=== PATIENT | female | born 1985 | race Caucasian/White ===

== ENCOUNTER 2019-04-16 11:24 | Emergency (ER) | payer BC, SELFPAY ==
[2019-04-16 11:27] VITALS: BP 102/63; PULSE 74; RESP 18; TEMP 36.9; O2SAT 100; BMI 21.4
--- NOTE | 2019-04-16 11:36 | DI.RAD.S_ITS ---
PROCEDURE: XR WRIST LT MIN 3V INDICATIONS: wrist pain s/p fall TECHNIQUE: 4 views of the wrist were acquired. COMPARISON: None. FINDINGS: Bones: There is a comminuted transverse fracture identified involving the distal radial metaphysis that may extend into the distal radial ulnar joint. No dislocation is evident. Dorsal displacement and impaction of the distal fracture fragment is identified. No additional fractures are evident. There is no dislocation. No suspicious osseous lesions are present. Soft tissues: No suspicious soft tissue calcifications. Soft tissue swelling at the fracture site along the dorsal aspect of the wrist is present. No unexpected radiopaque bodies are identified. IMPRESSION: Colles' fracture of the distal radius with mild dorsal impaction. Dictated by: Campos Cortez M.D. on 04/16/2019 at 10:54 Approved by: Campos Cortez M.D. on 04/16/2019 at 10:55
--- NOTE | 2019-04-16 11:44 | ED_ITS ---
HPI - Extremity Injury (Upper) <Anu STEPHANIE SmithP-BC - Last Filed: 04/16/19 15:58> General Chief Complaint: Extremity Injury, Upper Stated Complaint: L wrist injury Time Seen by Provider: 04/16/19 11:26 Source: patient and family Mode of arrival: Ambulatory Limitations: no limitations History of Present Illness HPI narrative: The patient is a 33-year-old female her sister for chief compla int of left wrist injury. She was running atrial raise, tripped and had a FOOSH injury to her left wrist. She denies hitting anything else. She states she landed with her left hand outstretched. She denies any left elbow or shoulder pain. She has taken Motrin for pain this morning. She denies any previous injuries to her left wrist. She states that she is able to move her left wrist. She presents with rings on her left hand which were promptly removed due to swelling. She denies any bleeding, numbness or tingling. She denies any other injury from her fall. She denies hitting her head neck or back pain. Related Data Previous Rx's Medication Instructions Recorded ondansetron 4 mg PO Q6H PRN #20 tab 04/16/19 oxycodone-acetaminophen [Percocet] 1 tab PO Q4-6H PRN #10 tab 04/16/19 Allergies Allergy/AdvReac Type Severity Reaction Status Date / Time No Known Drug Allergies Allergy Verified 04/16/19 11:48 Review of Systems <Anu STEPHANIE SmithP- - Last Filed: 04/16/19 15:58> Review of Systems Narrative: GENERAL: Denies chills, fatigue, malaise, fever, sweats. HEENT: Denies sinus pain, ear pain, sore throat, difficulty swallowing, dizziness. RESPIRATORY: Denies dyspnea, cough, wheezing, hemoptysis, sputum. CARDIOVASCULAR: Denies chest pain, palpitations, orthopnea, edema, GASTROINTESTINAL: Denies nausea, vomiting, abdominal pain, diarrhea, constipatio n, melena. : Denies dysuria, frequency, incontinence, hematuria, urinary retention. MUSCULOSKELETAL: See HPI SKIN: Denies rash, skin lesions, or other NEUROLOGIC: Denies weakness, headache, numbness, change in speech, confusion, seizures, incoordination. PSYCHIATRIC: No concerning psychosocial issues. 12 point review of systems is negative except for those stated above PFSH <KINZA Au - Last Filed: 04/16/19 15:58> Surgical History (Updated 04/16/19 @ 15:57 by KINZA Au) History of mandibular surgery (Acute) Exam <KINZA Au - Last Filed: 04/16/19 15:58> Narrative Exam Narrative: GENERAL: This is a well-nourished, well-developed patient, appears uncomfortable HEAD: Atraumatic. Normocephalic. No temporal or scalp tenderness. EYES: Pupils equal round and reactive. Extraocular motions intact. No scleral icterus. No injection or drainage. ENT: Nose without bleeding, purulent drainage or septal hematoma. Throat without erythema, tonsillar hypertrophy or exudate. Uvula midline. Airway patent. NECK: Trachea midline. No JVD or lymphadenopathy. Supple, nontender, no meningeal signs. CARDIOVASCULAR: Regular rate and rhythm RESPIRATORY: No cough. No increased respiratory effort. No accessory muscle use. No stridor. EXTREMITIES: Pain to palpation left wrist. Positive radial pulse left wrist. Pain with pronation and supination. No pain to palpation of left elbow or shoulder. Patient has sensation left fingers. Capillary refill less than 2 seconds all fingers left hand BACK: Nontender without deformity or crepitance. No flank tenderness. NEURO: AOx3. SKIN: No lacerations or abrasions noted over left forearm or wrist. Initial Vital Signs Initial Vital Signs: Vital Signs Temperature 98.4 F 04/16/19 11:27 Pulse Rate 74 04/16/19 11:27 Respiratory Rate 18 04/16/19 11:27 Blood Pressure 102/63 04/16/19 11:27 Pulse Oximetry 100 04/16/19 11:27 <Marlena Lees MD - Last Filed: 04/16/19 15:58> Initial Vital Signs Initial Vital Signs: Vital Signs Temperature 98.4 F 04/16/19 11:27 Pulse Rate 74 04/16/19 11:27 Respiratory Rate 18 04/16/19 11:27 Blood Pressure 102/63 04/16/19 11:27 Pulse Oximetry 100 04/16/19 11:27 Procedures <KINZA Au - Last Filed: 04/16/19 15:58> Orthopedic Fracture Reduction Fracture #1: Time Out Performed: Yes Side: left Fracture Reduction Location: radius Analgesia: none Technique: direct manipulation and traction/counter-traction Post Reduction X-rays Demonstrate: acceptable reduction Post-reduction neuro exam: intact Post-reduction vascular exam: intact Splint Applied: Yes Patient Tolerated Procedure: Well Additional Comments: Performed with Dr Lees doing direct manipulation of radius while I was applying traction to humerus. Chasity RN assisted with splint application. Patient tolerated procedure well. Orthopedic Splinting/Casting Injury #1: Side: left Upper Extremity Immobilizer: sling/shoulder immobilizer and sugar tong splint Post splinting neuro exam: intact Post splinting vascular exam: intact Placed by: Nursing Course <KINZA Au - Last Filed: 04/16/19 15:58> Orders Ordered: ED Orders 04/16/19 11:36 XR wrist LT min 3V Stat 04/16/19 14:05 XR wrist LT 2V Stat Discontinued Medications Oxycodone/Acetaminophen (Percocet 5/325) 2 tab PO NOW ONE Stop: 04/16/19 12:29 Last Admin: 04/16/19 12:33 Dose: 2 tab Documented by: JEFF Vital Signs Vital signs: Vital Signs - 8 hr 04/16/19 11:27 04/16/19 12:40 04/16/19 13:24 Temperature 98.4 F Pulse Rate 74 64 64 Respiratory Rate 18 16 16 Blood Pressure 102/63 Blood Pressure [Left Arm] 103/70 107/62 Pulse Oximetry 100 100 100 04/16/19 14:15 Temperature Pulse Rate 49 L Respiratory Rate 15 Blood Pressure Blood Pressure [Left Arm] 101/60 Pulse Oximetry 100 <Marlena Lees MD - Last Filed: 04/16/19 15:58> Orders Ordered: ED Orders 04/16/19 11:36 XR wrist LT min 3V Stat 04/16/19 14:05 XR wrist LT 2V Stat Discontinued Medications Oxycodone/Acetaminophen (Percocet 5/325) 2 tab PO NOW ONE Stop: 04/16/19 12:29 Last Admin: 04/16/19 12:33 Dose: 2 tab Documented by: JEFF Vital Signs Vital signs: Vital Signs - 8 hr 04/16/19 11:27 04/16/19 12:40 04/16/19 13:24 Temperature 98.4 F Pulse Rate 74 64 64 Respiratory Rate 18 16 16 Blood Pressure 102/63 Blood Pressure [Left Arm] 103/70 107/62 Pulse Oximetry 100 100 100 04/16/19 14:15 Temperature Pulse Rate 49 L Respiratory Rate 15 Blood Pressure Blood Pressure [Left Arm] 101/60 Pulse Oximetry 100 MDM - Extremity Injury (Upper) <KINZA Au - Last Filed: 04/16/19 15:58> Imaging Data wrist xray : Radiologist's impression: [address] [address] XRay Report Signed Patient: Ava Patricia [facility]#: [id number] : 1985Acct:[id number] Age/Sex: 33 / FDate of Service: 04/16/19 Loc: ED Accession Number: [id number] Procedure: XR wrist LT min 3V Ordering Provider: Anu Smith PROCEDURE: XR WRIST LT MIN 3V INDICATIONS: wrist pain s/p fall TECHNIQUE: 4 views of the wrist were acquired. COMPARISON: None. FINDINGS: Bones: There is a comminuted transverse fracture identified involving the distal radial metaphysis that may extend into the distal radial ulnar joint. No dislocation is evident. Dorsal displacement and impaction of the distal fracture fragment is identified. No additional fractures are evident. There is no dislocation. No suspicious osseous lesions are present. Soft tissues: No suspicious soft tissue calcifications. Soft tissue swelling at the fracture site along the dorsal aspect of the wrist is present. No unexpected radiopaque bodies are identified. IMPRESSION: Colles' fracture of the distal radius with mild dorsal impaction. Dictated by: Campos Cortez M.D. on 04/16/2019 at 10:54 Approved by: Campos Cortez M.D. on 04/16/2019 at 10:55 Wrist x-ray post reduction: Radiologist's impression: [address] [address] XRay Report Signed Patient: Ava Patricia [facility]#: [id number] : 1985Acct:[id number] Age/Sex: 33 / FDate of Service: 04/16/19 Loc: ED Accession Number: [id number] Procedure: XR wrist LT 2V Ordering Provider: Anu SmithBC PROCEDURE: XR WRIST LT 2V INDICATIONS: post reduction/ splint TECHNIQUE: 2 views of the wrist were acquired. COMPARISON: [facility], CR, XR WRIST LT MIN 3V, 04/16/2019, 11:35. FINDINGS: Interval closed reduction and placement of an overlying splint is identified. The transverse fracture involving the distal radial metaphysis demonstrates mild interval improvement in alignment, which is near anatomic. No new fractures are present. There is no dislocation or suspicious osseous lesion. Soft tissue swelling about the fracture is noted. IMPRESSION: Improved alignment of the distal radius fracture, status post closed reduction. Dictated by: Campos Cortez M.D. on 04/16/2019 at 13:42 Approved by: Campos Cortez M.D. on 04/16/2019 at 13:43 MDM Narrative Medical decision making narrative: The patient is a 33-year-old female who presents with a chief complaint of wrist pain after a FOOSH injury while running. Early x-rays indicated a Colles fracture. Dr. Waters from [facility] was consulted, who recommended closed reduction and splinting as well as follow-up with her home orthopedist. This was performed as documented after the patient received Percocet with Dr. Lees. The patient tolerated the procedure well and remained neurovascularly intact. The patient received Percocet in the emergency department for pain, which she tolerated well. I did give her prescriptions of Percocet as well as Zofran. I discussed at length rest ice compression elevation. Discussed the importance of following up with Orthopedics and she made an appointment prior to leaving the department. I did give her a note for her flight tonight. Encouraged rest ice compression elevation as well as pain medications as needed and able. Discussed return precautions of decreased movement of her fingers, blue fingers and/or concerns about decreased circulation. Patient has no questions or concerns upon discharge and was discharged home with sister. She states accordance of return precautions as well as follow-up care. No questions or concerns about discharge Discharge Plan Departure Patient Disposition: Home Clinical Impression: Colles' fracture Qualifiers: Encounter type: initial encounter Fracture type: closed Laterality: left Qualified Code(s): S52.532A - Colles' fracture of left radius, initial encounter for closed fracture Discharge Date/Time: 04/16/19 15:09 Instructions: How to Use a Sling, DI for Wrist Fracture, How To Perform RICE (Rest, Ice, Compress, Elevate), How to Take Care of Your Splint Activity Restrictions/Additional Instructions: Thank you for trusting us with your care today. You have a fracture of your left radius. We have slightly reduced it and splinted it for you. Please follow up with Orthopedics at home as soon as possible. Please use rest ice compression elevation. Please monitor the circulation of her fingers and come back to the emergency department if you have any acute concerns such as fingers that are blue cold and will not warm up. Please be aware that the Percocet can be constipating and sedating. I suggest not taking any additional acetaminophen as there is already acetaminophen in the Percocet. You can use anti-inflammatories in addition to the prescription medication. I have given her prescription of nausea medication in case it is needed. I have given you the contact information for [facility] in case you needed. Dr. Booth is the orthopedist I discussed your case with. Please have safe travels back to [place]. Prescriptions: New oxycodone-acetaminophen [Percocet] 5-325 mg tablet 1 tab PO Q4-6H PRN (Reason: pain) Qty: 10 RF: 0 ondansetron 4 mg tablet,disintegrating 4 mg PO Q6H PRN (Reason: nausea and vomiting) Qty: 20 RF: 0 Referrals: [facility] [Provider Group]
[2019-04-16] MEDS: OXYCODONE/ACETAMINOPHEN 5/325 TABLET 2 TAB PO (12:33)
[2019-04-16 12:40] VITALS: BP 103/70; PULSE 64; RESP 16; O2SAT 100
[2019-04-16 13:24] VITALS: BP 107/62; PULSE 64; RESP 16; O2SAT 100
--- NOTE | 2019-04-16 14:05 | DI.RAD.S_ITS ---
PROCEDURE: XR WRIST LT 2V INDICATIONS: post reduction/ splint TECHNIQUE: 2 views of the wrist were acquired. COMPARISON: [facility], CR, XR WRIST LT MIN 3V, 04/16/2019, 11:35. FINDINGS: Interval closed reduction and placement of an overlying splint is identified. The transverse fracture involving the distal radial metaphysis demonstrates mild interval improvement in alignment, which is near anatomic. No new fractures are present. There is no dislocation or suspicious osseous lesion. Soft tissue swelling about the fracture is noted. IMPRESSION: Improved alignment of the distal radius fracture, status post closed reduction. Dictated by: Campos Cortez M.D. on 04/16/2019 at 13:42 Approved by: Campos Cortez M.D. on 04/16/2019 at 13:43
[2019-04-16 14:15] VITALS: BP 101/60; PULSE 49; RESP 15; O2SAT 100
== END 2019-04-16 15:09 | disposition home or self-care (01) ==
PROVIDERS: Emergency Provider Nurse Practitioner Family
DX: S52.532A Colles' fracture of left radius, initial encounter for closed fracture (principal); W01.0XXA Fall on same level from slipping, tripping and stumbling without subsequent striking against object, initial encounter
CPT/HCPCS: 25565; 29240; 73100; 73110; 99283